=== PATIENT | female | born 1965 | race Caucasian/White ===

== ENCOUNTER 2021-11-19 22:38 | Inpatient (IN) | payer BC ==
[~2021-11-19] VITALS: Ht 160 cm; Wt 74.8 kg
--- NOTE | 2021-11-19 22:55 | NUR ---
BIBFAMILY C/O SOB X 1 NIGHT, WITH CP, TOOK zyrtec IN THE AM, USED INHALER ONCE WITH NO REFLIEF. PATIENT IN BED 07 ON MONITOR AND POX AWAITING MD CARMONA.
[2021-11-19] MEDS ORDERED: IPRATROPIUM NEB FS 0.5 MG/2.5 ML AMPUL.NEB NEB ONE (23:00)
[2021-11-19] MEDS ORDERED: ALBUTEROL FS 2.5 MG/3 ML VIAL.NEB NEB ONE (23:00)
[2021-11-19] MEDS ORDERED: IPRATROPIUM NEB FS 0.5 MG/2.5 ML AMPUL.NEB ONE (23:01)
[2021-11-19] MEDS ORDERED: ALBUTEROL FS 2.5 MG/3 ML VIAL.NEB ONE (23:01)
--- NOTE | 2021-11-19 23:09 | NUR ---
BLOOD COLLECTED AND SENT TO LAB
[2021-11-19 23:28] LABS: BASOPHILS % (AUTO) 0.4 % (0.0-2.0); EOSINOPHILS % (AUTO) 2.1 % (0.0-6.0); HEMATOCRIT 42 % (33-45); HEMOGLOBIN 13.8 g/dL (11.5-14.8); LYMPHOCYTES # (AUTO) 1.8 K/uL (0.8-4.8); LYMPHOCYTES % (AUTO) 15.6 % (20.0-44.0); MEAN CORPUSCULAR HGB CONC 33 g/dl (31.0-36.0); MEAN CORPUSCULAR VOLUME 84 fL (82-100); MONOCYTES # (AUTO) 0.6 K/uL (0.1-1.30); MONOCYTES % (AUTO) 4.9 % (2.0-12.0); NEUTROPHILS # (AUTO) 8.9 K/uL (1.8-8.9); PLATELET COUNT (AUTO) 213 K/uL (150-450); RED BLOOD CELL COUNT(AUTO) 4.98 MIL/uL (4.0-5.2); WHITE BLOOD COUNT (AUTO) 11.5 K/uL (4.3-11.0)
[2021-11-19 23:47] LABS: CALCIUM, SERUM 8.3 mg/dL (8.5-10.1); CARBON DIOXIDE 25 mmol/L (21-32); CHLORIDE 102 mmol/L (98-107); CREATININE 0.9 mg/dL (0.6-1.3); GLUCOSE 250 mg/dL (74-106); POTASSIUM 3.9 mmol/L (3.5-5.1); SODIUM SERUM 134 mmol/L (136-145); UREA NITROGEN, BLOOD 17 mg/dL (7-18)
--- NOTE | 2021-11-20 01:10 | NUR ---
COVID SWAB DONE AND SENT TO LAB
[2021-11-20] MEDS ORDERED: ASPIRIN 325 MG TABLET ONE (01:56)
[2021-11-20] MEDS ORDERED: ASPIRIN 325 MG TABLET PO ONE (02:00)
[2021-11-20] MEDS ORDERED: MAG HYDROX/AL HYDROX/SIMETH 30 ML UDC PO PRN (02:30)
[2021-11-20] MEDS ORDERED: NITROGLYCERIN 0.4 MG/TAB BOTTLE SL PRN (02:30)
[2021-11-20] MEDS ORDERED: ACETAMINOPHEN 325 MG TABLET PO PRN (02:30)
[2021-11-20] MEDS ORDERED: TEMAZEPAM 15 MG CAPSULE PO PRN (02:30)
[2021-11-20] MEDS ORDERED: DEXTROSE 50%-WATER 50 ML DISP.SYRIN IV PRN (02:30)
[2021-11-20] MEDS ORDERED: HYDROMORPHONE INJ 2 MG/ML DISP.SYRIN IV PRN (02:30)
[2021-11-20] MEDS ORDERED: MAGNESIUM HYDROXIDE 30 ML UDC PO PRN (02:30)
[2021-11-20] MEDS ORDERED: HYDROCODONE/APAP 5/325MG TABLET PO PRN (02:30)
[2021-11-20] MEDS ORDERED: Z GUARD REMEDY 4 OZ OINT TP PRN (02:30)
[2021-11-20] MEDS ORDERED: MORPHINE SULFATE INJ 2 MG/ML DISP.SYRIN IV PRN (02:30)
[2021-11-20] MEDS ORDERED: ONDANSETRON HCL/PF 4 MG/2 ML VIAL IVP PRN (02:30)
--- NOTE | 2021-11-20 02:32 | NUR ---
MRSA SWAB COLLECTED AND SENT TO LAB. PATIENT'S BELONGINGS LIST DONE.
--- NOTE | 2021-11-20 04:32 | NUR ---
PT A/OX4 IN BED. TOLERATING R/A WELL WITH MILD SOB, SATTING AT 95%. PT CONNECTED PT MONITOR. SAFETY MEASURES IN PLACE. ALL NEEDS MET AT THIS TIME.
--- NOTE | 2021-11-20 06:11 | NUR ---
PT C/O OF "HEAVINESS TO CHEST" BUT NOT PAIN. ON O2 2LPM VIA N/C SATTING WELL AT 95%. REFUSED PAIN MEDS AT THIS TIME; ALL NEEDS MET. SAFETY MEASURES IN PLACE
[2021-11-20] MEDS ORDERED: PANTOPRAZOLE 40 MG TABLET.DR PO ONE (07:39)
[2021-11-20] MEDS: PANTOPRAZOLE 40 MG TABLET.DR PO SCH (07:42)
[2021-11-20] MEDS: BLOOD SUGAR DIAGNOSTIC 1 EACH STRIP IN SCH ×4 (07:46→21:28)
[2021-11-20] MEDS ORDERED: AMLO2.5T4 PO (08:05)
[2021-11-20] MEDS ORDERED: LATA2.5D15 EACHEYE (08:05)
[2021-11-20] MEDS ORDERED: VERA180T11 PO (08:05)
[2021-11-20] MEDS ORDERED: QUET25TA PO (08:05)
[2021-11-20] MEDS ORDERED: CLON1TAB12 PO (08:05)
[2021-11-20] MEDS ORDERED: FLEC100T2 PO (08:05)
[2021-11-20] MEDS ORDERED: HYDR25TA4 PO (08:05)
[2021-11-20] MEDS ORDERED: LINA290C PO (08:05)
[2021-11-20] MEDS ORDERED: ATOR40TA PO (08:05)
[2021-11-20] MEDS ORDERED: METF-440 PO (08:05)
[2021-11-20] MEDS ORDERED: BUPR75TA8 PO (08:05)
[2021-11-20] MEDS ORDERED: ASPI-1169 PO (08:08)
[2021-11-20] MEDS: ENOXAPARIN SODIUM 40 MG/0.4 ML DISP.SYRIN SQ SCH (09:00)
[2021-11-20] MEDS ORDERED: ASPIRIN 81 MG TAB.CHEW PO SCH (09:00)
[2021-11-20] MEDS ORDERED: ENOXAPARIN SODIUM 40 MG/0.4 ML DISP.SYRIN SQ ONE (09:02)
[2021-11-20] MEDS ORDERED: ASPIRIN 81 MG TAB.CHEW ONE (09:03)
[2021-11-20] MEDS ORDERED: NITROGLYCERIN 0.4 MG/TAB BOTTLE ONE (09:18)
--- NOTE | 2021-11-20 09:23 | NUR ---
Brett kinney in [place] - 11/20/21 at 0932 by NAHEED CALLED NURSING SUP FOR ROOM AND WAS NOTIFIED THAT THERE WAS NO AVAILABLE BEDS
[2021-11-20] MEDS ORDERED: clonazePAM 1 MG TABLET PO PRN (09:30)
--- NOTE | 2021-11-20 10:06 | NUR ---
room [id number]
--- NOTE | 2021-11-20 10:22 | NUR ---
KAVITA BEVERLY GAVE REPORT OF THE PATIENT FROM ER.
--- NOTE | 2021-11-20 10:28 | NUR ---
YOUTH DIRECTOR NOTES RECEIVED PATIENT FROM ER VIA HORACIORMAO. PATIENT ALERT AND ORIENTED TIMES 4. NO PAIN NOTED. NO SOB NOTED. ON TELE MONITOR. ABLE TO AMBULATE WITHOUT ANY ISSUES. IV ACCESS ON THE RIGHT FA # 18 INTACT. ALL THE BELONGINGS ACCOUNTED AND SIGNED FOR. BED LOCKED IN THE LOWEST POSITION. CALL LIGHT AND TABLE IN REACH. WILL CONTINUE TO MONITOR.
--- NOTE | 2021-11-20 10:28 | NUR ---
REPORT GIVEN TO KAVITA LAUREANO FOR JANICE.
[2021-11-20 12:00] VITALS: BP 149/76
[2021-11-20 16:00] VITALS: BP 167/91
[2021-11-20] MEDS: OSELTAMIVIR PHOSPHATE 75 MG CAPSULE PO SCH (16:28)
[2021-11-20] MEDS: buPROPion 75 MG TABLET PO SCH (16:29)
[2021-11-20] MEDS: LEVOFLOXACIN 750 MG /D5W 150ML 750 MG in PREMIX 1 EA IV SCH (16:31)
[2021-11-20] MEDS ORDERED: FLECAINIDE ACETATE (100 MG) 100 MG TABLET PO SCH (17:00)
[2021-11-20] MEDS ORDERED: METOPROLOL TARTRATE 50 MG TABLET PO SCH (18:30)
[2021-11-20] MEDS: METOPROLOL TARTRATE 50 MG TABLET PO SCH ×2 (19:00→21:31)
--- NOTE | 2021-11-20 19:10 | NUR ---
TELE/RN OPENING NOTE RECEIVED PATIENT RESTING IN BED. AWAKE, ALERT AND ORIENTED X 4. ABLE TO MAKE NEEDS KNOWN. DENIES PAIN AT THIS TIME. CONTINUES ON O2 2L VIA NC WITH NO S/SX OF RESPIRATORY DISTRESS NOTED. IV ACCESS TO RIGHT FOREARM #18G INTACT, PATENT AND SALINE LOCKED. PATIENT IS AMBULATORY WITH STEADY GAIT. CONTINUES ON TELE MONITOR WITH CURRENT READING AFIB HR 120. NO S/SX OF SOB OR CHEST PAIN. CALL LIGHT WITHIN REACH. ASPIRATION, FALL AND SAFETY PRECAUTIONS MAINTAINED. WILL CONTINUE TO MONITOR.
--- NOTE | 2021-11-20 19:30 | NUR ---
INSURANCE CLAIMS SUPERVISOR CLOSING NOTES PATIENT AWAKE IN BED. PATIENT IS ALERT AND ORIENTED TIMES 4. NO PAIN NOTED. NO SOB NOTED. ON TELE MONITOR.EARLIER NOTED WITH UNCONTROLLED AFIB. DR CHRISTIANSON HERE. CHECKED THE MONITOR AND SPOKE WITH THE PATIENT. HE WILL ORDER MEDICATIONS FOR PATIENT'S CONDITION. ABLE TO AMBULATE WITHOUT ANY ISSUES. ABLE TO USE RESTROOM WITHOUT ANY ISSUES.IV ACCESS ON THE RIGHT FA # 18 INTACT. ALL DUE MEDS GIVEN ORDERED. BED LOCKED IN THE LOWEST POSITION. CALL LIGHT AND TABLE IN REACH. WILL ENDORSE FOR JANICE.
[2021-11-20] MEDS: FLECAINIDE ACETATE (100 MG) 100 MG TABLET PO SCH ×2 (20:03→20:17)
[2021-11-20 20:04] VITALS: BP 135/68
--- NOTE | 2021-11-20 20:04 | NUR ---
TELE/RN NOTE HOLDING 1900 DOSE OF METOPROLOL. PATIENT RECEIVED 50MG DOSE AT 18:30.
--- NOTE | 2021-11-20 20:17 | NUR ---
TELE/RN NOTE HOLDING 2100 TAMBOCOR DOSE. JUST ADMINISTERED AT 1900 PER MD ORDER.
[2021-11-20 20:40] VITALS: BP 148/72
--- NOTE | 2021-11-20 21:17 | NUR ---
TELE/MARBLE INSTALLATION HELPER NOTE PATIENT BEING TRANSFERRED TO [facility] ROOM 110 TO R/O POSSIBLE COVID-19. REPORT GIVEN TO PRINCESS WALLS. PATIENT TRANSFERRED VIA BED WITH TELE MONITOR AND O2. ALL BELONGINGS AND MEDICATIONS SENT WITH PATIENT.
[2021-11-20] MEDS: LATANOPROST EYE DROP 0.005% 2.5 ML BOTTLE EACHEYE SCH (21:29)
[2021-11-20] MEDS: INSULIN REGULAR, HUMAN 100 UNIT/ML 3 ML VIAL SQ PRN (21:32)
--- NOTE | 2021-11-20 21:36 | NUR ---
WOOL FLEECE GRADER NOTE PT NOTED WITH HIGH BP 170/109 HR 126 UNCONTROLLED A FIB. LOPRESSOR 25 MG PO GIVEN ALSO GIVEN RESTORIL 15 MG PO PER PTS REQUEST FOR SLEEP. HS MEDS GIVEN. CONTINUE TO MONITOR HER.
[2021-11-20] MEDS ORDERED: QUETIAPINE FUMARATE 25 MG TABLET PO SCH (22:00)
--- NOTE | 2021-11-20 22:43 | NUR ---
spindle carver Initial Note Pt received lying in bed A&O x4, able to make needs known. Pt on 2L NC, O2sat 95%, no s/s of resp distress, no SOB, non-labored breathing, appears comfortable. Pt attached to external monitor, Afib with HR 106; pt denies any chest pain/discomfort. Right forearm IV 18G intact and patent, no s/s of infiltration, flushes well. Pt ambulatory with steady gait. Bed in lowest position, side rails up x3, call light within reach. Will continue to monitor throughout the night. Addendum: 11/21/21 at 0153 by PRINCESS GINETTE WALLS Pt on 3L NC
--- NOTE | 2021-11-21 00:39 | NUR ---
STOREKEEPER ENGINEERING NOTE NOTED ON TELE MONITOR PT RHYTHM CHANGED TO SR HR 66. CONTINUE TO MONITOR HER.
--- NOTE | 2021-11-21 06:27 | NUR ---
marine engine machinist apprentice Closing Note Pt in bed, A&Ox4, slept intermittently throughout the night. Pt on 3L NC, O2sat 96%; had episode of SOB, noted NC was displaced and placed back on pt and elevated HOB. Pt attached on external monitor; was Afib, Aflutter during time of arrival but turned to SR with HR 64. No complaints of resp distress, chest pain, non-labored breathing. IV access right forearm 18G intact and patent; no s/s of infiltration noted. Bed in lowest position, side rails up x3, call light within reach. Will endorse to dayshift nurse to continue care.
[2021-11-21 06:38] LABS: BASOPHILS % (AUTO) 0.3 % (0.0-2.0); EOSINOPHILS % (AUTO) 1.7 % (0.0-6.0); HEMATOCRIT 46 % (33-45); HEMOGLOBIN 15.7 g/dL (11.5-14.8); LYMPHOCYTES # (AUTO) 1.4 K/uL (0.8-4.8); LYMPHOCYTES % (AUTO) 12.6 % (20.0-44.0); MEAN CORPUSCULAR HGB CONC 34 g/dl (31.0-36.0); MEAN CORPUSCULAR VOLUME 85 fL (82-100); MONOCYTES # (AUTO) 0.8 K/uL (0.1-1.30); MONOCYTES % (AUTO) 7.2 % (2.0-12.0); NEUTROPHILS # (AUTO) 8.4 K/uL (1.8-8.9); NEUTROPHILS % (AUTO) 78.2 % (43.0-81.0); PLATELET COUNT (AUTO) 225 K/uL (150-450); RED BLOOD CELL COUNT(AUTO) 5.48 MIL/uL (4.0-5.2); WHITE BLOOD COUNT (AUTO) 10.7 K/uL (4.3-11.0)
[2021-11-21 06:52] LABS: CALCIUM, SERUM 8.5 mg/dL (8.5-10.1); CREATININE 0.9 mg/dL (0.6-1.3); MAGNESIUM 2.2 mg/dL (1.8-2.4); PHOSPHORUS 3.6 mg/dL (2.5-4.9); POTASSIUM 4.1 mmol/L (3.5-5.1)
[2021-11-21] MEDS: BLOOD SUGAR DIAGNOSTIC 1 EACH STRIP IN SCH ×4 (07:30→21:42)
[2021-11-21] MEDS ORDERED: ASPIRIN 81 MG TAB.CHEW PO SCH (09:00)
[2021-11-21] MEDS: METOPROLOL TARTRATE 50 MG TABLET PO SCH ×3 (09:00→16:47)
[2021-11-21] MEDS: OSELTAMIVIR PHOSPHATE 75 MG CAPSULE PO SCH ×2 (09:59→16:46)
[2021-11-21] MEDS: ATORVASTATIN 40 MG TABLET PO SCH (09:59)
[2021-11-21] MEDS: HYDROCHLOROTHIAZIDE 25 MG TABLET PO SCH (10:00)
[2021-11-21] MEDS: PANTOPRAZOLE 40 MG TABLET.DR PO SCH (10:02)
[2021-11-21] MEDS: ENOXAPARIN SODIUM 40 MG/0.4 ML DISP.SYRIN SQ SCH (10:05)
[2021-11-21] MEDS: VERAPAMIL SR 180 MG CAP PO SCH (12:41)
[2021-11-21] MEDS: FLECAINIDE ACETATE (100 MG) 100 MG TABLET PO SCH ×2 (12:43→21:29)
[2021-11-21] MEDS: buPROPion 75 MG TABLET PO SCH ×2 (13:32→16:45)
[2021-11-21 13:33] LABS: THYROID STIMULATING HORMONE 1.963 uIU/mL (0.358-3.74)
[2021-11-21] MEDS: INSULIN REGULAR, HUMAN 100 UNIT/ML 3 ML VIAL SQ PRN ×2 (13:41→21:43)
--- NOTE | 2021-11-21 13:46 | NUR ---
RN NOTES RECEIVE PT ASLEEP IN BED, EASY TO AROUSE, A & O X 4, Pt in bed, A&Ox4, 02 SATAT 97% WITH NC AT 3 LPM, NO C/O OF STRESS OR INABILITY TO BREATH NO SOB NOTED, NO DISTRESS OR LABORED BREATHING NOTED, SR NOTED DURING SHIFT WITH HR BETWEEN 60- 64. IV FA 18 GAUGE, FLUSHING WELL, INTACT AND NO S/S OF ANY IRRITATION NOTED, CALL LIGHT IN REACH, COMPLIANT WITH CARE AND COOPERATIVE, BS AT 12 NOON AT 180 INSULIN GIVEN AT 3 UNITS , ABLE TO AMBULATE STEADY TO VOID, BED LOW TO FLOOR, WHEELS LOCKED CALL LIGHT IN REACH !!!
[2021-11-21] MEDS: LEVOFLOXACIN 750 MG /D5W 150ML 750 MG in PREMIX 1 EA IV SCH (16:47)
--- NOTE | 2021-11-21 18:29 | NUR ---
Iv d/c infiltration leaking, Midline ordered , md notified, new order for levoquin 750 mg po and IV levoquin order was d/c IF qt goes over 470 then levoquin po is to be d/c, this is in miscellaneous notes as well.endorsed to oncoming shift as well for safetly.
[2021-11-21] MEDS ORDERED: MISCELLANEOUS MED 1 EA EA PO SCH (18:30)
[2021-11-21] MEDS ORDERED: LEVOFLOXACIN (250MG) 250 MG TABLET PO SCH (19:00)
--- NOTE | 2021-11-21 19:30 | NUR ---
RN NOTE PT RECEIVED IN BED. PT IS CURRENTLY ON RA SHOWING NO S/SX OF RESP DISTRESS/SOB. BREATHING EVEN AND UNLABORED. PT IS A/OX4. ON STOCK COUNTER SHOWING NSR-SB. PT IS ABLE TO AMBULATE. IV ACCESS NOTED ON LEFT UPPER ARM ML. LINE FLUSHED, PATENT, AND INTACT WITH NO SIGNS OF INFILTRATION. ALL SAFETY MEASURES IMPLEMENTED. HOB ELEVATED. CALL LIGHT WITHIN REACH. BED LOCKED AND IN LOWEST POSITION. WILL CONTINUE TO MONITOR AND ASSESS FOR ANY CHANGES DURING SHIFT.
[2021-11-21 20:00] VITALS: BP 157/70
[2021-11-21] MEDS: LATANOPROST EYE DROP 0.005% 2.5 ML BOTTLE EACHEYE SCH (21:29)
[2021-11-22] VITALS: BP 137/73
[2021-11-22 04:00] VITALS: BP 152/74
--- NOTE | 2021-11-22 05:56 | NUR ---
RN NOTE SPOKE WITH NAZARIO CANALES REGARDING PT STATING ZOFRAN DID NOT HELP MUCH AND BEGAN FEELING NAUSEOUS AGAIN. NAZARIO CANALES ORDERED REGLAN 10MG IVP X1. ORDER NOTED.
[2021-11-22] MEDS ORDERED: METOCLOPRAMIDE HCL 10 MG/2 ML VIAL IV ONE (06:00)
[2021-11-22 06:34] LABS: BASOPHILS % (AUTO) 0.3 % (0.0-2.0); EOSINOPHILS % (AUTO) 1.3 % (0.0-6.0); HEMATOCRIT 44 % (33-45); HEMOGLOBIN 14.8 g/dL (11.5-14.8); LYMPHOCYTES # (AUTO) 1.6 K/uL (0.8-4.8); LYMPHOCYTES % (AUTO) 15.2 % (20.0-44.0); MEAN CORPUSCULAR HGB CONC 34 g/dl (31.0-36.0); MEAN CORPUSCULAR VOLUME 83 fL (82-100); MONOCYTES # (AUTO) 0.7 K/uL (0.1-1.30); MONOCYTES % (AUTO) 6.9 % (2.0-12.0); NEUTROPHILS # (AUTO) 7.9 K/uL (1.8-8.9); NEUTROPHILS % (AUTO) 76.3 % (43.0-81.0); PLATELET COUNT (AUTO) 230 K/uL (150-450); RED BLOOD CELL COUNT(AUTO) 5.27 MIL/uL (4.0-5.2); WHITE BLOOD COUNT (AUTO) 10.4 K/uL (4.3-11.0)
--- NOTE | 2021-11-22 06:49 | NUR ---
RN NOTE PT RECEIVED IN BED. PT IS CURRENTLY ON RA SHOWING NO S/SX OF RESP DISTRESS/SOB. BREATHING EVEN AND UNLABORED. PT IS A/OX4. ON STATISTICAL METHODS TEACHER SHOWING NSR-SB. IV ACCESS NOTED ON LEFT UPPER ARM ML. LINE FLUSHED, PATENT, AND INTACT WITH NO SIGNS OF INFILTRATION. ALL SAFETY MEASURES IMPLEMENTED. ALL DUE MEDS GIVEN ORDERED. PT KEPT CLEAN AND COMFORTABLE. HOB ELEVATED. CALL LIGHT WITHIN REACH. BED LOCKED AND IN LOWEST POSITION. WILL ENDORSE TO MORNING SHIFT RN FOR JANICE.
[2021-11-22 07:06] LABS: CALCIUM, SERUM 9.1 mg/dL (8.5-10.1); CREATININE 0.7 mg/dL (0.6-1.3)
[2021-11-22 08:00] VITALS: BP 138/69
--- NOTE | 2021-11-22 08:30 | NUR ---
security systems specialist Opening Note Pt received in bed, asleep, easily arousable, calm, cooperative, A&Ox4. Pt on RA, no s/s of resp distress, no SOB, non-labored breathing; appears comfortable. Pt attached to external monitor, noted to be SB with HR 57. No complaints of dizziness, feeling faint, chest pain. KEZIA midline noted to be intact and patent; no s/s of infiltration. Bed in lowest position, call light within reach, side rails up x3. Will monitor throughout the night.
[2021-11-22] MEDS: ATORVASTATIN 40 MG TABLET PO SCH (08:49)
[2021-11-22] MEDS: FLECAINIDE ACETATE (100 MG) 100 MG TABLET PO SCH (08:49)
[2021-11-22] MEDS: OSELTAMIVIR PHOSPHATE 75 MG CAPSULE PO SCH (08:50)
[2021-11-22] MEDS: ENOXAPARIN SODIUM 40 MG/0.4 ML DISP.SYRIN SQ SCH (08:53)
[2021-11-22] MEDS ORDERED: FUROSEMIDE 20 MG/2 ML VIAL IV ONE (09:00)
[2021-11-22] MEDS: HYDROCHLOROTHIAZIDE 25 MG TABLET PO SCH (09:07)
[2021-11-22] MEDS: BLOOD SUGAR DIAGNOSTIC 1 EACH STRIP IN SCH (09:08)
[2021-11-22] MEDS ORDERED: METO50TA16 PO (09:15)
[2021-11-22] MEDS ORDERED: LEVO250T59 PO (09:15)
[2021-11-22] MEDS: buPROPion 75 MG TABLET PO SCH (09:22)
[2021-11-22] MEDS: METOPROLOL TARTRATE 50 MG TABLET PO SCH (09:29)
[2021-11-22 09:30] VITALS: BP 138/69
[2021-11-22] MEDS: VERAPAMIL SR 180 MG CAP PO SCH (09:30)
[2021-11-22] MEDS: INSULIN REGULAR, HUMAN 100 UNIT/ML 3 ML VIAL SQ PRN (09:41)
[2021-11-22] MEDS: PANTOPRAZOLE 40 MG TABLET.DR PO SCH (09:46)
--- NOTE | 2021-11-22 10:00 | NUR ---
RN Note Discharge process initiated with patient. Reviewed necessary discharge instructions including to continue taking home medications and to start taking new prescribed antibiotics and proper health management at home. Pt signed necessary documents, copy was given to pt. Pt reports will be picking her up in 30-45 min. All lines and external monitor were removed from pt. Pt had no questions or concerns regarding discharge instructions. Pt escorted to lobby by CNAs.
[2021-11-22 21:06] LABS: *MYCOPLASMA PNEUMONIAE IgG 487 U/mL (0-99)
== END 2021-11-22 16:53 | disposition home or self-care (01) | DRG 194 ==
LOC: ER 22:41 → TRANSITION 11-20 03:34 → TELE 11-20 10:13 → TELE1 11-20 21:17
PROVIDERS: ADMIT Nurse Practitioner Acute Care; ATTEND Family Medicine
PROC: 05HC33Z Insertion of Infusion Device into Left Basilic Vein, Percutaneous Approach (ICD-10-PCS; principal; 2021-11-21)
DX: J15.9 Unspecified bacterial pneumonia (principal); D68.59 Other primary thrombophilia; J90 Pleural effusion, not elsewhere classified; J98.11 Atelectasis; J70.4 Drug-induced interstitial lung disorders, unspecified; I10 Essential (primary) hypertension; Z20.822 Contact with and (suspected) exposure to COVID-19; T46.2X5A Adverse effect of other antidysrhythmic drugs, initial encounter; Y92.009 Unspecified place in unspecified non-institutional (private) residence as the place of occurrence of the external cause; E11.65 Type 2 diabetes mellitus with hyperglycemia; K59.09 Other constipation; E78.5 Hyperlipidemia, unspecified; F41.9 Anxiety disorder, unspecified; F32.A Depression, unspecified; I48.0 Paroxysmal atrial fibrillation; J44.9 Chronic obstructive pulmonary disease, unspecified
CPT/HCPCS: 36410; 36415; 71045-TC; 71250-TC; 80048-TC; 82040-TC; 82962-TC; 83735-TC; 83880; 84100-TC; 84443-TC; 84484-TC; 85025-TC; 85378-TC; 86713; 86738; 87081-TC; 93307-TC; A4216; C9803; G0378; J1650; J1815; J1940; J1956; J2270; J2405; J2765; J7050; U0003